=== PATIENT | male | born 1985 | race African-American/Black ===

== ENCOUNTER 2024-01-04 13:25 | Emergency (ER) | payer MEDICAID ==
[~2024-01-04] VITALS: Ht 180.3 cm; Wt 75.9 kg
[2024-01-04 13:31] VITALS: BP 129/75; PULSE 80; RESP 18; TEMP 98.1
== END 2024-01-04 14:38 | disposition home or self-care (01) ==
LOC: EMS 13:28
DX: J02.9 Acute pharyngitis, unspecified (principal)
CPT/HCPCS: 99282; Z7502